=== PATIENT | female | born 1970 | race American Indian/Alaskan Native ===

== ENCOUNTER 2018-11-03 20:55 | Emergency (ER) | payer SELFPAY ==
--- NOTE | 2018-11-03 21:16 | Emergency Department Report ---
Blank Doc - Documentation Documentation: 47 y.o. female presents with right sided chest pain. PMH of CHF. Pain worse with deep breaths and cough. Patient live in a residential. Current smoker. CXR ordered [facility] for evaluation
--- NOTE | 2018-11-03 22:36 | XRay Report ---
FINAL REPORT EXAM: XR CHEST ROUTINE 2V HISTORY: right sided chest pain TECHNIQUE: 2 views of the chest. PRIORS: None. FINDINGS: The cardiomediastinal silhouette appears normal. The lungs are clear. There is thoracic spondylosis w ith multiple bridging syndesmophytes. IMPRESSION: No evidence of acute cardiopulmonary disease Findings are consistent with DISH
[2018-11-03 23:11] VITALS: BP 140/69
[2018-11-04] MEDS ORDERED: ULTRAM PO ONE (00:04)
[2018-11-04] MEDS ORDERED: ULTRAM ONE (00:07)
--- NOTE | 2018-11-04 00:37 | Emergency Department Report ---
Minor Respiratory - HPI Chief Complaint: Chest Pain Stated Complaint: CHEST PAIN Time Seen by Provider: 11/03/18 21:12 Duration: 3 Days Pain Location: Chest Severity: moderate Minor Respiratory: Yes Rhinorrhea, Yes Able to Tolerate Fluids, Yes Cough, Yes Sick Contacts, No Sore Throat, No Ear Pain, No Hemoptysis, No Chest Pain (right- sided chest tightness with cough), No Shortness of Breath, No Fever Other History: This is a 47-year-old -[place] female who presents with right-sided chest pain with cough. Past medical history of congestive heart failure. Patient reports pain is worse with deep breaths. Patient states she [place] a [place] and everyone nears the. She is a current smoker half a pack per day. Patient also reports some body aches. She denies radiating pain, fever, nausea or vomiting, or sore throat. ED Review of Systems ROS: Stated complaint: CHEST PAIN Other details as noted in HPI Constitutional: denies: chills, fever Respiratory: cough, SOB with exertion. denies: shortness of breath, wheezing Cardiovascular: denies: chest pain (right sided chest discomfort with cough), palpitations, dyspnea on exertion, orthopnea, edema, syncope Endocrine: no symptoms reported Gastrointestinal: denies: abdominal pain, nausea, diarrhea Neurological: denies: headache, weakness, paresthesias Psychiatric: denies: anxiety, depression ED Past Medical Hx - Past Medical History Previous Medical History?: Yes Hx Congestive Heart Failure: Yes Additional medical history: hypotensive - Surgical History Past Surgical History?: Yes Additional Surgical History: - Social History Smoking Status: Current Every Day Smoker Substance Use Type: None - Medications Home Medications: Home Medications Medication Instructions Recorded Confirmed Last Taken Type Benzonatate [Tessalon Perles] 100 mg PO Q8HR PRN #30 capsule 11/04/18 Unknown Rx Fluticasone [Flonase] 1 spray NS QDAY #1 bottle 11/04/18 Unknown Rx Ibuprofen [Motrin 600 MG tab] 600 mg PO Q8H PRN #15 tablet 11/04/18 Unknown Rx Minor Respiratory Exam - Exam General: Vital signs noted. No distress. Alert and acting appropriately. HEENT: Yes Pharyngeal Erythema (erythematous posterior pharynx, uvula midline), Yes Moist Mucous Membranes, Yes Rhinorrhea (turbinates are mildly congested with clear discharge), No Pharyngeal Exudates, No Conjuctival Injection, No Frontal Tenderness, No Maxillary Tenderness Ear: Neither TM Bulge, Neither TM Erythema, Neither EAC Pain, Neither EAC Discharge Neck: Yes Supple, No Adenopathy Lungs: Yes Good Air Exchange, No Wheezes, No Ronchi, No Stridor, No Cough, No Labored Respirations, No Retractions, No Use of Accessory Muscles, No Other Abnormal Lung Sounds Heart: Yes Regular, No Murmur Abdomen: Yes Normal Bowel Sounds, No Tenderness, No Peritoneal Signs Skin: No Rash, No Edema Neurologic: Alert and oriented, no deficits. Musculoskeletal: Unremarkable. ED Course Vital Signs 11/03/18 11/03/18 11/03/18 21:03 21:15 23:09 Temperature 99.1 F 99.1 F 98.8 F Pulse Rate 88 88 88 Respiratory 16 16 20 Rate Blood Pressure 147/85 Blood Pressure 147/85 140/69 [Left] O2 Sat by Pulse 98 98 99 Oximetry ED Medical Decision Making - Medical Decision Making 47 y.o. female that presents with flu-like symptoms. Patient examined by me and stable. No distress noted. Vitals normal. Given tramadol 50 mg by mouth once while in ER for myalgia. Symptoms are susceptible of viral syndrome. Educated on care for viral syndrome. Start flonase, Tessalon Perles, and ibuprofen. She is instructed to take Tylenol or ibuprofen for aches and pains, to drink a lot of liquids to stay home and rest. Follow up with Primary Care Provider in 2-3 days. She will return to the emergency room if she does not get better as discussed. Critical care attestation.: If time is entered above; I have spent that time in minutes in the direct care of this critically ill patient, excluding procedure time. ED Disposition Clinical Impression: Viral syndrome, Cough in adult Upper respiratory infection Qualifiers: URI type: acute nasopharyngitis (common cold) Qualified Code(s): J00 - Acute nasopharyngitis [common cold] Disposition: TO HOME OR SELFCARE Is pt being admited?: No Does the pt Need Aspirin: No Condition: Stable Instructions: Viral Syndrome (ED), Upper Respiratory Infection (ED) Additional Instructions: Symptoms are most likely coming from your infection. These infections typically do not give antibiotics. You are to take ibuprofen every 6 hours alternated with Tylenol over 4 hours pain. You may not feel like eating which is to be expected. Try eating a bland diet as tolerated. Wash hands frequently. F/U with Primary Care Provider. Return to ER if fever, SOB, or difficulty breathing after 48 hours of supportive care. Prescriptions: Benzonatate [Tessalon Perles] 100 mg PO Q8HR PRN #30 capsule PRN Reason: Cough Fluticasone [Flonase] 1 spray NS QDAY #1 bottle Ibuprofen [Motrin 600 MG tab] 600 mg PO Q8H PRN #15 tablet PRN Reason: Pain Referrals: TI SAEED DO [Primary Care Provider] - 3-5 Days [facility] [Outside] - 3-5 Days [facility] [Outside] - 3-5 Days Time of Disposition: 00:42
[2018-11-04] MEDS ORDERED: TESSALON PERLES PO ONE (01:02)
== END 2018-11-04 01:15 | disposition home or self-care (01) ==
LOC: ED 20:55
DX: B34.9 Viral infection, unspecified (principal); J00 Acute nasopharyngitis [common cold]; F17.200 Nicotine dependence, unspecified, uncomplicated
CPT/HCPCS: 71046

== ENCOUNTER 2018-11-11 06:17 | Emergency (ER) | payer SELFPAY ==
[2018-11-11 06:46] VITALS: BP 151/85
[2018-11-11] MEDS ORDERED: DUONEB *Not for PRN Use IH ONE (07:28)
[2018-11-11] MEDS ORDERED: DELTASONE PO ONE (07:28)
--- NOTE | 2018-11-11 07:28 | Emergency Department Report ---
Minor Respiratory - HPI Chief Complaint: Nausea/Vomiting/Diarrhea Stated Complaint: COUGHING BLOOD Time Seen by Provider: 11/11/18 07:13 Duration: 3 Days Pain Location: Chest Severity: moderate Minor Respiratory: Yes Rhinorrhea, Yes Sore Throat, Yes Able to Tolerate Fluids, Yes Ear Pain, Yes Cough, Yes Sick Contacts, Yes Hemoptysis, No Chest Pain, No Shortness of Breath, No Fever Other History: Patient is a 47-year-old female who comes to the ER today complaining of vomiting mucus. She was seen here approximately one week ago and treated with symptom relief. She was not given an antibiotic. So she returns today with worsening symptoms and for further evaluation and treatment. On further discussions she states that she has had a cough that she coughs so hard it makes her vomit mucus. She is actually expectorating her coughing the mucus is not coming from her stomach. She denies fever at home. She states that many people in her family have been ill recently. She has upper respiratory infections including postnasal drip and sore throat that then resulted in progression and a cough. She is ambulatory. She has no fever on admission. ED Review of Systems ROS: Stated complaint: COUGHING BLOOD Other details as noted in HPI Comment: All other systems reviewed and negative Constitutional: denies: chills, fever ENT: as per HPI, ear pain, throat pain. denies: dental pain, hearing loss, epistaxis Respiratory: see HPI, cough Cardiovascular: denies: palpitations Endocrine: denies: flushing Gastrointestinal: denies: abdominal pain Genitourinary: denies: urgency Musculoskeletal: denies: back pain Skin: denies: lesions Neurological: denies: headache Psychiatric: denies: depression Hematological/Lymphatic: denies: easy bleeding ED Past Medical Hx - Past Medical History Previous Medical History?: Yes Hx Congestive Heart Failure: Yes Additional medical history: hypotensive - Surgical History Past Surgical History?: Yes Hx Pacemaker: No Additional Surgical History: X3 - Social History Smoking Status: Never Smoker Substance Use Type: None - Medications Home Medications: Home Medications Medication Instructions Recorded Confirmed Last Taken Type Azithromycin [Zithromax Z-SAE] 250 mg PO DAILY #6 tablet 11/11/18 Unknown Rx Benzonatate [Tessalon Perles] 100 mg PO Q8HR PRN #20 capsule 11/11/18 Unknown Rx Fluticasone [Flonase] 1 spray NS QDAY #1 bottle 11/11/18 Unknown Rx predniSONE [Deltasone] 20 mg PO DAILY #5 tablet 11/11/18 Unknown Rx Minor Respiratory Exam - Exam General: Vital signs noted. No distress. Alert and acting appropriately. HEENT: Yes Pharyngeal Erythema, Yes Moist Mucous Membranes, Yes Rhinorrhea, Yes Frontal Tenderness, Yes Maxillary Tenderness, No Pharyngeal Exudates, No Conjuctival Injection Ear: Neither TM Bulge, Neither TM Erythema, Neither EAC Pain, Neither EAC Discharge Neck: Yes Supple, No Adenopathy Lungs: Yes Good Air Exchange, Yes Wheezes (bilateral), Yes Ronchi, Yes Cough, No Stridor, No Labored Respirations, No Retractions, No Use of Accessory Muscles, No Other Abnormal Lung Sounds Heart: Yes Regular, No Murmur Abdomen: Yes Normal Bowel Sounds, No Tenderness, No Peritoneal Signs Skin: No Rash, No Edema Neurologic: Alert and oriented, no deficits. Musculoskeletal: Unremarkable. ED Course Vital Signs 11/11/18 06:43 Temperature 98.5 F Pulse Rate 81 Respiratory 18 Rate Blood Pressure 151/85 [Right] O2 Sat by Pulse 96 Oximetry - Reevaluation(s) Reevaluation #1: 11/11/18 08:48 Respiratory treatment and steroids initiated in the emergency room. Followed by a shot of IM Rocephin. ED Medical Decision Making - Radiology Data Radiology results: report reviewed, image reviewed - Medical Decision Making Patient has upper respiratory tract infection. She is ambulatory. She is taking by mouth. She does have a cough. She had some mild wheezing bilaterally on exam. Also has some rhonchi. X-rays been completed. Given her constellation of symptoms and x-ray patient will be treated with antibiotics for sinusitis/bronchitis. Given the x-ray and concern this may evolve into pneumonia not treated aggressively. Patient will be discharged home with discharge instructions. Critical care attestation.: If time is entered above; I have spent that time in minutes in the direct care of this critically ill patient, excluding procedure time. ED Disposition Clinical Impression: Upper respiratory infection, Bronchitis, Sinusitis Disposition: TO HOME OR SELFCARE Is pt being admited?: No Does the pt Need Aspirin: No Condition: Stable Instructions: Acute Bronchitis (ED) Referrals: PRIMARY CARE, [Primary Care Provider] - 3-5 Days [facility] [Outside] - 3-5 Days Time of Disposition: 08:45
--- NOTE | 2018-11-11 08:23 | XRay Report ---
ROUTINE CHEST, TWO VIEWS: HISTORY: Cough. Subtle bibasilar opacities have developed since 11/03/18 exam. I suspect this represents segmental atelectasis although early infiltrates are not excluded. The upper lung zones are clear. Heart and mediastinal structures are within normal limits. Mild degenerative changes and scoliosis in the spine. IMPRESSION: Mild bibasilar atelectasis. Infiltrates versus segmental atelectasis. Please correlate with the patient's clinical presentation.
[2018-11-11] MEDS ORDERED: ROCEPHIN IM ONE (08:37)
[2018-11-11] MEDS ORDERED: XYLOCAINE 1% MPF 5 mL INFILTRATI ONE (08:37)
== END 2018-11-11 09:50 | disposition home or self-care (01) ==
LOC: ED 06:17
DX: J06.9 Acute upper respiratory infection, unspecified (principal); J40 Bronchitis, not specified as acute or chronic; J32.9 Chronic sinusitis, unspecified; I50.9 Heart failure, unspecified; Z88.5 Allergy status to narcotic agent
CPT/HCPCS: 71046; 94640; 96372; 99283; J0696; J7512